=== PATIENT | female | born 1970 | race Caucasian/White ===

== ENCOUNTER → 2016-11-20 | Outpatient (CLI) | payer OTHER ==
--- NOTE | 2016-11-20 13:44 | MA ---
Diagnostic Digital Right Mammogram History: Six-month follow-up right breast calcifications. Comparison: May 12, 2016. Technique: 2 magnification views and 2 conventional views of the right breast. Images reviewed with i CAD. Breast Density: 2 Findings: Calcifications in the upper outer quadrant are stable. The calcifications have benign morph ology. The remainder of the right breast is unchanged as well.. Impression: Probably benign right breast microcalcifications, stable x6 months.. BI-RADS: Category 3 . Probably benign. Recommendation: These can be followed at the time of routine screening mammography in April 2017, [facility] time the patient should receive a diagnostic bilateral mammogram.
== END ==
LOC: CIMAGING 13:18
PROVIDERS: ATTEND Family Medicine
DX: Z12.39 Encounter for other screening for malignant neoplasm of breast (principal); R92.0 Mammographic microcalcification found on diagnostic imaging of breast
CPT/HCPCS: G0206

== ENCOUNTER → 2017-06-05 | Outpatient (CLI) | payer OTHER | LOC: CIMAGING 13:09 | PROVIDERS: ATTEND Family Medicine | DX: Z12.39 Encounter for other screening for malignant neoplasm of breast (principal); R92.0 Mammographic microcalcification found on diagnostic imaging of breast | CPT/HCPCS: G0204 ==

== ENCOUNTER → 2018-08-20 | Outpatient (CLI) | payer OTHER | LOC: CIMAGING 14:42 | PROVIDERS: ATTEND Family Medicine | DX: Z12.31 Encounter for screening mammogram for malignant neoplasm of breast (principal); Z80.3 Family history of malignant neoplasm of breast ==

== ENCOUNTER → 2019-04-03 | Outpatient (CLI) | payer OTHER | LOC: CIMAGING 12:34 ==

== ENCOUNTER → 2019-04-17 | Outpatient (CLI) | payer OTHER | LOC: FIMAGING 11:59 ==